=== PATIENT | female | born 1990 ===

== ENCOUNTER → 2018-05-21 21:08 | Outpatient (REF) | payer MEDICAID, SELFPAY ==
[2018-05-24 11:45] LABS: Hep B Core Antibody Negative (NEGAT)
[2018-05-24 13:20] LABS: Mumps Antibody IgG Positive (Negative); Rubella IgG Ab (UVM) Positive
[2018-05-24 14:20] LABS: Measles IgG Antibody Positive; Varicella IgG Antibody Positive
== END ==
LOC: NCHCN 21:08
PROVIDERS: PCP Nurse Practitioner Family; Visit Provider Nurse Practitioner Family
DX: Z02.89 Encounter for other administrative examinations (principal); Z11.59 Encounter for screening for other viral diseases
CPT/HCPCS: 86704; 86787; 86735; 86762; 86765

== ENCOUNTER 2019-11-16 14:41 | Outpatient (REF) | payer MEDICAID, SELFPAY ==
[2019-11-16 20:28] LABS: HCT 39.5 % (36.0-46.0); HGB 13.1 g/dL (12.0-15.5); Mean Corp. HGB Concentration 33.2 g/dL (32.0-36.0); Mean Corpuscular Hemoglobin 30.6 pg (27.0-33.0); Mean Corpuscular Volume 92.3 fL (80-95); Mean Platelet Volume 11.2 fL (8.0-11.0); Platelet Count 257 x1000/uL (130-400); RBC 4.28 m/cumm (4.00-5.20); RBC Distribution Width 12.7 % (11.7-14.6); White Blood Cell Count 7.27 k/cumm (4.4-10.8)
[2019-11-16 20:30] LABS: TSH 1.82 uIU/mL (0.36-3.74)
[2019-11-17 04:50] LABS: Vitamin D 25 Total 27.3 ng/ml (30-100)
== END 2019-11-16 15:01 ==
LOC: NCHCN 14:41
PROVIDERS: PCP Nurse Practitioner Family; Visit Provider Nurse Practitioner Family
DX: E03.9 Hypothyroidism, unspecified (principal); F32.9 Major depressive disorder, single episode, unspecified
CPT/HCPCS: 82306; 85027; 84443

== ENCOUNTER 2020-04-11 11:27 | Outpatient (REF) | payer MEDICAID, SELFPAY ==
--- NOTE | 2020-04-11 10:45 | PAPFT_PTH ---
PATIENT: GIO WEISS LOC: [facility] U#:[id number] AGE/SX: 30/F ROOM: RE04/11/[address]: Jazzmine Tran NP : [id number] BED: DIS: 04/11/2020 SPEC #: [id number] RECD: 04/11/20 12:54 STATUS: ELLEN REQ #: [id number] JOSUE: 04/11/20 10:[address]: Jazzmine Tran NP DEPT: [facility] Cytology RECD BY: Yolanda Aguilar ENTERED: 04/11/20 12:54 SP TYPE: PAPFT OTHR DR: Patrica Doshi Tissues: 1 - CX/ENDOCX FOR PAP SMEARS Procedures: PAP THIN PREP/[facility] Screening HPV DNA PROBE Comments: [id number] (CHLAMYDIA/GC)
[2020-04-13 13:09] LABS: Chlamydia Result Negative (Negative); GC Result Negative (Negative)
== END 2020-04-11 11:47 ==
LOC: LBN 11:27
PROVIDERS: PCP Nurse Practitioner Family; Visit Provider Nurse Practitioner Women's Health
DX: Z12.4 Encounter for screening for malignant neoplasm of cervix (principal); Z11.51 Encounter for screening for human papillomavirus (HPV); Z11.3 Encounter for screening for infections with a predominantly sexual mode of transmission
CPT/HCPCS: 87491; 87591; 88142; 87624

== ENCOUNTER 2020-10-18 01:50 | Outpatient (CLI) | payer MEDICAID, SELFPAY ==
--- NOTE | 2020-10-18 13:15 | DI.DEXA_ITS ---
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 COMPARISON: CR LUMBAR SPINE COMPLETE from 09/02/2013 FINDINGS: Performed on a [employer] unit. Lateral image: No compression fracture evident. Lumbar Spine total T-score: 0.0; prior 2010 reading was -0.3 Hip total T-score:-0.5 . Prior 2010 reading was -0.1 Forearm total T-score: 0.0 IMPRESSION: Bone mineral density measures in the normal range. Fracture risk is low. Note: Any spine fracture indicates 5x risk for subsequent spine fracture and 2x risk for subsequent h ip fracture. World Health Organization criteria for BMD interpretation classify patients: Normal...... T- Score at or above -1.0 Osteopenic... T- Score between -1.0 and -2.5 Osteoporosis... T-Score at or below -2.5
== END 2020-10-18 02:10 ==
PROVIDERS: PCP Nurse Practitioner Family; Visit Provider Nurse Practitioner Family
DX: Q79.60 Ehlers-Danlos syndrome, unspecified (principal)
CPT/HCPCS: 77080

== ENCOUNTER 2020-11-19 15:22 | Outpatient (REF) | payer MEDICAID, SELFPAY ==
[2020-11-20 15:04] LABS: Chlamydia Result Negative (Negative); GC Result Negative (Negative)
== END 2020-11-19 15:42 ==
LOC: LBN 15:22
PROVIDERS: PCP Nurse Practitioner Family; Visit Provider Nurse Practitioner Women's Health
DX: Z11.3 Encounter for screening for infections with a predominantly sexual mode of transmission (principal)
CPT/HCPCS: 87491; 87591

== ENCOUNTER 2020-12-17 18:50 | Outpatient (REF) | payer MEDICAID, SELFPAY ==
[2020-12-21 12:14] LABS: 2-Hydroxy Ethyl Flurazepam Not Detected ng/mL (Cutoff: 10); 6-monoacetylmorphine Not Detected ng/mL (Cutoff: 25); Alpha-Hydroxy Midazolam Not Detected ng/mL (Cutoff: 10); Alpha-Hydroxy Triazolam Not Detected ng/mL (Cutoff: 10); Alpha-Hydroxyalprazolam Not Detected ng/mL (Cutoff: 10); Alpha-OH-alprazolam Glucuronid Not Detected ng/mL (Cutoff: 50); Alprazolam Not Detected ng/mL (Cutoff: 10); Barbiturates Negative ng/mL (Cutoff: 200); Buprenorphine Not Detected ng/mL (Cutoff: 5); Chlordiazepoxide Not Detected ng/mL (Cutoff: 10); Clobazam Not Detected ng/mL (Cutoff: 10); Clonazepam Not Detected ng/mL (Cutoff: 10); Cocaine Negative ng/mL (Cutoff: 150); Codeine Not Detected ng/mL (Cutoff: 25); Comment Normal; Creatinine, U 415.3 mg/dL; Diazepam Not Detected ng/mL (Cutoff: 10); Dihydrocodeine Not Detected ng/mL (Cutoff: 25); EDDP Not Detected ng/mL (Cutoff: 25); Fentanyl Not Detected ng/mL (Cutoff: 2); Flurazepam Not Detected ng/mL (Cutoff: 10); Hydrocodone Not Detected ng/mL (Cutoff: 25); Hydromorphone Not Detected ng/mL (Cutoff: 25); Hydromorphone-3-beta-glucuroni Not Detected ng/mL (Cutoff: 100); Lorazepam Not Detected ng/mL (Cutoff: 10); Lorazepam Glucuronide Not Detected ng/mL (Cutoff: 50); Meperidine Not Detected ng/mL (Cutoff: 25); Methadone Not Detected ng/mL (Cutoff: 25); Midazolam Not Detected ng/mL (Cutoff: 10); Morphine Not Detected ng/mL (Cutoff: 25); N-Desmethylclobazam Not Detected ng/mL (Cutoff: 200); N-desmethyltapentadol Not Detected ng/mL (Cutoff: 50); Naloxone Not Detected ng/mL (Cutoff: 25); Norbuprenorphine Not Detected ng/mL (Cutoff: 5); Norfentanyl Not Detected ng/mL (Cutoff: 2); Norhydrocodone Not Detected ng/mL (Cutoff: 25); Normeperidine Not Detected ng/mL (Cutoff: 25); Noroxycodone Not Detected ng/mL (Cutoff: 25); Noroxymorphone Not Detected ng/mL (Cutoff: 25); O-desmethyltramadol Not Detected ng/mL (Cutoff: 25); Oxazepam Glucuronide Not Detected ng/mL (Cutoff: 50); Prazepam Not Detected ng/mL (Cutoff: 10); Propoxyphene Not Detected ng/mL (Cutoff: 25); Specific Gravity 1.029; Tapentadol Not Detected ng/mL (Cutoff: 25); Temazepam Not Detected ng/mL (Cutoff: 10); Temazepam Glucuronide Not Detected ng/mL (Cutoff: 50); Tetrahydrocannabinol Presumptive Positive ng/mL (Cutoff: 50); Tramadol Not Detected ng/mL (Cutoff: 25); Triazolam Not Detected ng/mL (Cutoff: 10); Zolpidem Phenyl-4-Carboxy acid Not Detected ng/mL (Cutoff: 10); pH 5.9
[2020-12-21 15:16] LABS: 3,4-methylenedioxyamphetamine Not Detected; 3,4-methylenedioxyethylampheta Not Detected; 3,4-methylenedioxymethamphetam Not Detected; Amphetamine Not Detected; Ephedrine Not Detected; Methamphetamine Not Detected; Methylphenidate Not Detected ng/mL (Cutoff: 20); Phencyclidine (PCP) Not Detected ng/mL (Cutoff: 20); Phentermine Not Detected; Pseudoephedrine Not Detected; Ritalinic Acid Not Detected
[2020-12-22 00:22] LABS: Carboxy-THC Interpretation Positive.; Delta-9 CarboxyThc by LC-MS/MS >500.0 ng/mL (Cutoff:<3)
== END 2020-12-17 18:51 | disposition home or self-care (01) ==
LOC: NCHCN 18:50
PROVIDERS: PCP Nurse Practitioner Family; Visit Provider Nurse Practitioner Family
DX: M54.2 Cervicalgia (principal); Z79.899 Other long term (current) drug therapy
CPT/HCPCS: 80307; 80347; 80349; 80364

== ENCOUNTER 2021-01-15 17:35 | Outpatient (REF) | payer MEDICAID, SELFPAY ==
[2021-01-17 14:50] LABS: Chlamydia Result Negative (Negative); GC Result Negative (Negative)
== END 2021-01-15 17:36 | disposition home or self-care (01) ==
LOC: LBN 17:35
PROVIDERS: PCP Nurse Practitioner Family; Visit Provider Nurse Practitioner Women's Health
DX: Z11.3 Encounter for screening for infections with a predominantly sexual mode of transmission (principal)
CPT/HCPCS: 87491; 87591